=== PATIENT | male | born 1990 | race Caucasian/White ===

== ENCOUNTER 2016-05-24 | Outpatient (CLI) | payer MEDICAID | END 2016-05-24 21:30 | disposition EMS.NT | DX: R56.9 Unspecified convulsions (principal) ==

== ENCOUNTER 2016-05-25 | Outpatient (CLI) | payer MEDICAID | END 2016-05-25 15:04 | disposition EMS.NT | DX: R56.9 Unspecified convulsions (principal) ==

== ENCOUNTER 2016-07-14 06:41 | Outpatient (CLI) | payer MEDICAID | END 2016-07-14 06:42 | disposition home or self-care (01) | DX: R56.9 Unspecified convulsions (principal) ==

== ENCOUNTER 2016-07-14 10:04 | Outpatient (CLI) | payer MEDICAID | END 2016-07-14 10:05 | disposition critical access hospital (66) | DX: R56.9 Unspecified convulsions (principal) | CPT/HCPCS: A0425; A0427 ==

== ENCOUNTER 2016-07-14 10:05 | Emergency (ER) | payer MEDICAID ==
[2016-07-14] MEDS ORDERED: ONDANSETRON 4 MG/2 ML VIAL ONE (10:16)
[2016-07-14] MEDS ORDERED: LORazepam 2 MG/ML SYRINGE IVP STA ×2 (10:18→10:50)
[2016-07-14] MEDS ORDERED: ONDANSETRON 4 MG/2 ML VIAL IVP STA (10:18)
[2016-07-14] MEDS ORDERED: LORazepam 2 MG/ML SYRINGE ONE ×2 (10:23→10:43)
[2016-07-14] MEDS ORDERED: levETIRAcetam INJ 500 MG in SODIUM CHLORIDE 0.9% 100ML 100 ML IV STA (10:51)
== END 2016-07-14 13:41 | disposition home or self-care (01) ==
DX: G40.909 Epilepsy, unspecified, not intractable, without status epilepticus (principal)
CPT/HCPCS: 36415; 70450; 80053; 80306; 80320; 81001; 83690; 85025; 96365; 96375; 96376; 99284; J2060

== ENCOUNTER 2016-09-29 08:31 | Outpatient (CLI) | payer MEDICAID | END 2016-09-29 08:32 | disposition EMS.NT | LOC: EMS 08:31 | PROVIDERS: ATTEND Surgery | DX: Z03.89 Encounter for observation for other suspected diseases and conditions ruled out (principal) ==

== ENCOUNTER 2016-09-29 13:15 | Outpatient (CLI) | payer MEDICAID | END 2016-09-29 13:16 | disposition critical access hospital (66) | LOC: EMS 13:15 | PROVIDERS: ATTEND Surgery | DX: R46.89 Other symptoms and signs involving appearance and behavior (principal); R51 Headache | CPT/HCPCS: A0425; A0429 ==

== ENCOUNTER 2016-09-29 13:31 | Emergency (ER) | payer MEDICAID ==
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
[2016-09-29] MEDS ORDERED: ONDANSETRON ODT 4 MG TABLET TL STA (14:15)
[2016-09-29] MEDS ORDERED: diazePAM INJ 5 MG/ML SYRINGE IM STA (14:19)
[2016-09-29] MEDS ORDERED: LORazepam 2 MG/ML SYRINGE ONE (14:20)
[2016-09-29] MEDS ORDERED: diazePAM INJ 5 MG/ML SYRINGE ONE ×2 (14:26→16:00)
[2016-09-29] MEDS ORDERED: diazePAM INJ 5 MG/ML SYRINGE IVP STA ×2 (14:27→15:58)
--- NOTE | 2016-09-29 14:38 | XRAY Preliminary Report ---
Exam: XR Chest 1 View IMPRESSION: Normal single view chest. [facility] SITE ID: [id number]
[2016-09-29] MEDS ORDERED: levETIRAcetam INJ 500 MG in SODIUM CHLORIDE 0.9% 100ML 100 ML IV STA (14:42)
--- NOTE | 2016-09-29 14:49 | XRAY Report ---
EXAM: CHEST RADIOGRAPHY EXAM DATE: 09/29/2016 02:23 p.m. CLINICAL HISTORY: Cough. COMPARISON: 10/02/2015. TECHNIQUE: 1 view. FINDINGS: Lungs/Pleura: No focal opacities evident. No pleural effusion. No pneumothorax. Mediastinum: Within exam limitations, cardiomediastinal contour is normal. Other: None. IMPRESSION: Normal single-view chest. [facility] Referring Provider Line: [phone] SITE ID: [id number]
[2016-09-29 14:53] LABS: BASOPHILS # (AUTO) 0.1 10^3/uL (0.0-0.1); BASOPHILS % (AUTO) 0.4 %; HCT - HEMATOCRIT 45.6 % (42.0-52.0); HGB - HEMOGLOBIN 15.2 g/dL (14.0-18.0); LYMPHOCYTES # (AUTO) 1.8 10^3/uL (1.5-3.5); LYMPHOCYTES % (AUTO) 5.4 %; MEAN CORPUSCULAR HGB CONC 33.3 g/dL (32.0-36.0); MEAN CORPUSCULAR VOLUME 92.9 fL (80.0-94.0); MEAN PLATELET VOLUME 10.9 fL (7.4-11.4); MONOCYTES % (AUTO) 8.9 %; NEUTROPHILS # (AUTO) 28.9 10^3/uL (1.5-6.6); NEUTROPHILS % (AUTO) 85.3 %; RED BLOOD COUNT 4.91 10^6/uL (4.70-6.10); RED CELL DISTRIBUTION WIDTH 13.5 % (12.0-15.0); UNCORRECTED WHITE BLOOD COUNT 33.9 x10^3/uL; WHITE BLOOD COUNT 33.9 x10^3/uL (4.8-10.8)
[2016-09-29 15:04] LABS: ALBUMIN/GLOBULIN RATIO 1.8 (1.0-2.2); BUN - BLOOD UREA NITROGEN 16 mg/dL (6-20); CALCIUM 10.3 mg/dL (8.5-10.3); CHLORIDE 107 mmol/L (101-111); CREATININE 1.2 mg/dL (0.6-1.2); GFR - MDRD 73 (>89); GLUCOSE 153 mg/dL (70-100); LIPASE 19 U/L (22-51); SALICYLATE < 6.0 mg/dL; SODIUM 145 mmol/L (135-145); TOTAL PROTEIN 8.5 g/dL (6.7-8.2)
[2016-09-29 15:05] LABS: ACETAMINOPHEN < 10 ug/mL (10-30)
[2016-09-29 15:07] LABS: CARBON DIOXIDE - CO2 12 mmol/L (21-32)
[2016-09-29] MEDS ORDERED: POTASSIUM CHLOR 10 MEQ/100 ML 100 ML IV ONE ×2 (15:07→15:14)
[2016-09-29] MEDS ORDERED: ONDANSETRON ODT 4 MG TABLET ONE (15:50)
[2016-09-29] MEDS ORDERED: ONDANSETRON 4 MG/2 ML VIAL IVP STA (15:57)
[2016-09-29] MEDS ORDERED: ONDANSETRON 4 MG/2 ML VIAL ONE (16:01)
[2016-09-29 16:21] LABS: PLATELET ESTIMATE, MANUAL NORMAL (130-450,000) (NORMAL); PLATELET MORPHOLOGY NORMAL APPEARANCE (NORMAL)
[2016-09-29 16:22] LABS: WBC MORPHOLOGY (MULTIPLE) NORMAL APPEARANCE (NORMAL)
[2016-09-29 16:50] VITALS: BP 120/72
== END 2016-09-29 17:13 | disposition home or self-care (01) ==
LOC: EDUNIT# → ED 13:31
DX: G40.909 Epilepsy, unspecified, not intractable, without status epilepticus (principal); E87.6 Hypokalemia; D72.829 Elevated white blood cell count, unspecified; Z91.14 Patient's other noncompliance with medication regimen; R45.1 Restlessness and agitation; F91.8 Other conduct disorders
CPT/HCPCS: 36415; 71010; 80053; 80164; 80307; 80320; 80329; 83690; 84443; 85025; 96365; 96375; 96376; 99284; 99285; Q0162

== ENCOUNTER 2016-11-20 10:15 | Outpatient (CLI) | payer MEDICAID | END 2016-11-20 10:16 | disposition EMS.NT | LOC: EMS 10:15 | PROVIDERS: ATTEND Surgery | DX: R56.9 Unspecified convulsions (principal) ==

== ENCOUNTER 2016-11-21 08:05 | Outpatient (CLI) | payer MEDICAID | END 2016-11-21 08:06 | disposition EMS.NT | LOC: EMS 08:05 | PROVIDERS: ATTEND Surgery | DX: R56.9 Unspecified convulsions (principal) ==

== ENCOUNTER 2016-12-12 14:38 | Outpatient (CLI) | payer MEDICAID | END 2016-12-12 14:39 | disposition home or self-care (01) | LOC: EMS 14:38 | PROVIDERS: ATTEND Surgery | DX: J98.8 Other specified respiratory disorders (principal) | CPT/HCPCS: A0425; A0429 ==

== ENCOUNTER 2016-12-12 14:58 | Emergency (ER) | payer MEDICAID ==
[2016-12-12 15:18] VITALS: BP 131/82
--- NOTE | 2016-12-12 15:41 | ED Physician Documentation ---
History of Present Illness - Stated complaint Stated Complaint: SORE THROAT - Chief complaint Chief Complaint: Heent - History obtained from History obtained from: Patient - Additonal information Additional information: Patient is a 26-year-old man with a history of seizure disorders on marijuana. He also says he has had a history of pneumonia in the past. He is here with a couple day history of cough occasionally productive of mucus. He is also had mild nasal congestion. Apparently the patient went to a [facility] and said he had to be evaluated because he has been coughing quite a bit at night. This was a prerequisite in order to state the [facility]. He denies any fever or chills. There is no constipation or diarrhea. Review of systems: For pertinent positive and negatives in the review of systems please see the history of present illness, otherwise all other systems have been reviewed and are negative. Dragon disclaimer: Parts of this medical record were created using voice recognition technology. Because of the inherent limitations of this system, occasional same sounding word substitutions do occur and persist despite proofreading. Please read the document for context. Review of Systems Constitutional: denies: Fever, Chills Cardiac: denies: Chest pain / pressure Respiratory: reports: Cough. denies: Hemoptysis GI: denies: Abdominal Pain, Abdominal Swelling PD PAST MEDICAL HISTORY - Past Medical History Cardiovascular: None Respiratory: None Neuro: Seizure disorder Endocrine/Autoimmune: None GI: None : None HEENT: None Psych: None Musculoskeletal: None Derm: None - Past Surgical History Past Surgical History: No - Present Medications Home Medications: Ambulatory Orders Medication Instructions Recorded Confirmed Albuterol Sulf [Ventolin Hfa 1 - 2 puffs INH Q4HR PRN #1 inhaler 12/12/16 Inhaler] Amoxicillin 875 mg PO BID #14 tablet 12/12/16 - Allergies Allergies/Adverse Reactions: Allergies Allergy/AdvReac Type Severity Reaction Status Date / Time [facility] Allergy Hallucinati Verified 12/12/16 15:18 ons - Social History Does the pt smoke?: No Smoking Status: Never smoker Does the pt drink ETOH?: No Does the pt have substance abuse?: No - Immunizations Immunizations are current?: Yes - POLST Patient has POLST: No PD ED PE NORMAL - General General: Alert and oriented X 3, No acute distress, Well developed/nourished, Other (Well-appearing man in no apparent distress) - HEENT HEENT: Atraumatic - Neck Neck: Supple, no meningeal sign, No bony TTP - Cardiac Cardiac: RRR, No murmur, No gallop, No rub - Respiratory Respiratory: No respiratory distress, Clear bilaterally, Other (Occasional minimal wheeze heard) - Abdomen Abdomen: Normal bowel sounds, Non tender, Non distended - Derm Derm: Normal color, Warm and dry - Extremities Extremities: No deformity, No tenderness to palpate, Normal ROM s pain - Neuro Neuro: Alert and oriented X 3, No motor deficit, No sensory deficit Results - Vitals Vitals: Vital Signs - 24 hr 12/12/16 15:17 Temperature 36.9 C Heart Rate 87 Respiratory 14 Rate Blood Pressure 131/82 H O2 Saturation 100 Oxygen O2 Source Room air PD MEDICAL DECISION MAKING - ED course ED course: 18-year-old man who complains of cough and congestion and needs evaluation to rule out serious illness or get antibiotics return to your before he returns to the [facility]. On examination he is a thin strange but well-appearing man in no apparent distress he occasionally has a dry nonproductive cough. Mild end expiratory wheezing is heard bilaterally. I suspect more likely than not he has a bronchitis but since has been having cough and congestion and currently resident of [facility] would like to try and decrease his symptoms so that he gets taking care of. I will prescribe albuterol and a short course of amoxicillin although I suspect more likely than not bronchitis versus pneumonia clinically. Disposition: To home Clinical impression: 1. Acute bronchitis with bronchospasm-mild Departure - Departure Disposition: 01 Home, Self Care Clinical Impression: Acute bronchitis Qualifiers: Bronchitis organism: unspecified organism Qualified Code(s): J20.9 - Acute bronchitis, unspecified Condition: Good Instructions: ED Upper Resp Infec Abx Tx Follow-Up: Tommy [facility] [Provider Group] Prescriptions: Albuterol Sulf [Ventolin Hfa Inhaler] 1 - 2 puffs INH Q4HR PRN #1 inhaler PRN Reason: Shortness Of Air/Wheezing Amoxicillin 875 mg PO BID #14 tablet
== END 2016-12-12 15:30 | disposition home or self-care (01) ==
LOC: EDUNIT# → ED 14:58
DX: J20.9 Acute bronchitis, unspecified (principal); G40.909 Epilepsy, unspecified, not intractable, without status epilepticus; F12.90 Cannabis use, unspecified, uncomplicated
CPT/HCPCS: 99283

== ENCOUNTER 2016-12-23 15:42 | Outpatient (CLI) | payer MEDICAID ==
--- NOTE | 2016-12-24 09:27 | XRAY Report ---
TWO VIEW BILATERAL LOWER LEGS: 12/23/2016 CLINICAL INDICATION: Bilateral pain. FINDINGS: Frontal and lateral views of the bilateral lower legs demonstrate no evidence of fracture. No radiopaque foreign body is seen in the soft tissues. No periosteal reaction is appreciated on eit her side. IMPRESSION: NORMAL BILATERAL LOWER LEGS. JOB #: [id number] EXT JOB #:[id number]
== END 2016-12-23 15:43 | disposition home or self-care (01) ==
LOC: DI.N 15:42
PROVIDERS: ATTEND Physician Assistant
DX: M79.662 Pain in left lower leg (principal); M79.661 Pain in right lower leg

== ENCOUNTER 2017-01-04 06:31 | Outpatient (CLI) | payer MEDICAID | END 2017-01-04 06:32 | disposition critical access hospital (66) | LOC: EMS 06:31 | PROVIDERS: ATTEND Surgery | DX: R56.9 Unspecified convulsions (principal) | CPT/HCPCS: A0425; A0429 ==

== ENCOUNTER 2017-01-04 06:47 | Emergency (ER) | payer MEDICAID ==
[2017-01-04] MEDS ORDERED: DEXAMETHASONE 10 MG/ML VIAL IVP STA (07:21)
--- NOTE | 2017-01-04 07:24 | ED Physician Documentation ---
PD HPI SEIZURE - Stated complaint Stated Complaint: SZ - Chief complaint Chief Complaint: Neuro - History obtained from History obtained from: Patient - History of Present Illness Timing - onset: Today Witnessed: Witnessed Number of seizures: Multiple (X2) Description of seizure activity: Abscence, Postictal Injury during seizure: None Associated symptoms: Other (cough and congestion) History of seizures: Known seizure disorder Contributing factors: Off meds Similar symptoms before: Diagnosis (seizure) Recently seen: Emergency Dept (last month with bronchitis.) - Additional information Additional information: 26-year-old noncompliant male with a history of seizure disorder was at the shoulder today when he had to seizures which are described as an absence of being and jerking. He has previously had postictal period with aggressive behavior and today this was not witnessed. He has had cough and congestion and with previous seizure he has had pneumonia and electrolyte disturbances. Review of Systems Constitutional: denies: Fever, Chills Eyes: denies: Decreased vision Ears: denies: Ear pain Nose: reports: Rhinorrhea / runny nose, Congestion, Sinus pressure / pain Throat: denies: Sore throat Cardiac: denies: Chest pain / pressure, Palpitations Respiratory: reports: Cough. denies: Dyspnea GI: denies: Abdominal Pain, Nausea, Vomiting, Constipation, Diarrhea : denies: Dysuria, Frequency Skin: denies: Rash, Lesions Musculoskeletal: denies: Neck pain, Back pain Neurologic: reports: Seizure. denies: Generalized weakness, Focal weakness, Numbness PD PAST MEDICAL HISTORY - Past Medical History Cardiovascular: None Respiratory: None Neuro: Seizure disorder Endocrine/Autoimmune: None GI: None : None HEENT: None Psych: None Musculoskeletal: None Derm: None - Past Surgical History Past Surgical History: No - Present Medications Home Medications: Ambulatory Orders Medication Instructions Recorded Confirmed Azithromycin [Zithromax] 250 mg PO DAILY #6 tablet 01/04/17 - Allergies Allergies/Adverse Reactions: Allergies Allergy/AdvReac Type Severity Reaction Status Date / Time levetiracetam [From Keppra] Allergy Hallucinati Verified 01/04/17 06:58 ons - Social History Does the pt smoke?: No Smoking Status: Never smoker Does the pt drink ETOH?: No Does the pt have substance abuse?: No - Immunizations Immunizations are current?: Yes - POLST Patient has POLST: No PD ED PE NORMAL - Vitals Vital signs reviewed: Yes (hypotensive with wide pulse pressure. ) - General General: No acute distress, Well developed/nourished - HEENT HEENT: Atraumatic, PERRL, EOMI, Other (mild inflamation of the right TM and more inflamation with distorted landmarks on the left. ) - Neck Neck: Supple, no meningeal sign, No bony TTP - Cardiac Cardiac: RRR, No murmur - Respiratory Respiratory: No respiratory distress, Clear bilaterally - Abdomen Abdomen: Soft, Non tender - Back Back: No CVA TTP, No spinal TTP - Derm Derm: Normal color, Warm and dry, No rash - Extremities Extremities: No deformity, No edema - Neuro Neuro: Alert and oriented X 3, electric range servicer 2-12 intact, No motor deficit, No sensory deficit, Normal speech - Psych Psych: Normal mood, Normal affect Results - Vitals Vitals: Vital Signs - 24 hr 01/04/17 01/04/17 06:52 07:32 Temperature 36.2 C L Heart Rate 73 74 Respiratory 16 16 Rate Blood Pressure 100/54 L 110/64 O2 Saturation 99 99 Oxygen O2 Source Room air - Labs Labs: Laboratory Tests 01/04/17 01/04/17 07:30 07:30 WBC 12.3 H RBC 4.16 L Hgb 12.8 L Hct 37.4 L MCV 89.9 MCH 30.7 MCHC 34.2 RDW 13.8 Plt Count 225 MPV 8.8 Neut # 9.3 H Lymph # 1.9 [place] # 1.0 Eos # 0.1 Baso # 0.1 Absolute Nucleated RBC 0.01 Nucleated RBCs 0.1 Sodium 141 Potassium 3.1 L Chloride 101 Carbon Dioxide 33 H Anion Gap 7.0 BUN 13 Creatinine 0.7 Estimated GFR (MDRD) 134 Glucose 97 Calcium 8.8 Total Bilirubin 0.4 AST 19 ALT 11 Alkaline Phosphatase 55 Total Protein 5.9 L Albumin 3.4 Globulin 2.5 Albumin/Globulin Ratio 1.4 Lipase 15 L PD MEDICAL DECISION MAKING - ED course Complexity details: reviewed old records, reviewed results, re-evaluated patient , considered differential, d/w patient ED course: 26-year-old male with a history of seizure disorder noncompliant on medications has had another seizure today associated with otitis media. Here in the emergency department he is administered dexamethasone intravenously and we will prescribe azithromycin. He has low K+ and he is administered potassium bicarbonate. He continues to refuse antiepileptic. Departure - Departure Disposition: 01 Home, Self Care Clinical Impression: Seizure, Hypokalemia Otitis media Qualifiers: Otitis media type: suppurative Chronicity: acute Laterality: bilateral Recurrence: not specified as recurrent Spontaneous tympanic membrane rupture: without spontaneous rupture Qualified Code(s): H66.003 - Acute suppurative otitis media without spontaneous rupture of ear drum, bilateral Instructions: ED Potassium Deficiency, ED Otitis Media Acute Adult, ED Seizure Recurrent Follow-Up: Alan Atwood PA-C [Primary Care Provider] - Prescriptions: Azithromycin [Zithromax] 250 mg PO DAILY #6 tablet
[2017-01-04 07:36] LABS: BASOPHILS # (AUTO) 0.1 10^3/uL (0.0-0.1); BASOPHILS % (AUTO) 0.4 %; EOSINOPHILS # (AUTO) 0.1 10^3/uL (0.0-0.7); EOSINOPHILS % (AUTO) 0.8 %; HCT - HEMATOCRIT 37.4 % (42.0-52.0); HGB - HEMOGLOBIN 12.8 g/dL (14.0-18.0); LYMPHOCYTES # (AUTO) 1.9 10^3/uL (1.5-3.5); LYMPHOCYTES % (AUTO) 15.4 %; MEAN CORPUSCULAR HEMOGLOBIN 30.7 pg (27.0-31.0); MEAN CORPUSCULAR HGB CONC 34.2 g/dL (32.0-36.0); MEAN CORPUSCULAR VOLUME 89.9 fL (80.0-94.0); MEAN PLATELET VOLUME 8.8 fL (7.4-11.4); MONOCYTES % (AUTO) 7.8 %; NEUTROPHILS # (AUTO) 9.3 10^3/uL (1.5-6.6); NEUTROPHILS % (AUTO) 75.6 %; NUCLEATED RED BLOOD CELLS AUTO 0.1 /100WBC; RED BLOOD COUNT 4.16 10^6/uL (4.70-6.10); RED CELL DISTRIBUTION WIDTH 13.8 % (12.0-15.0); UNCORRECTED WHITE BLOOD COUNT 12.3 x10^3/uL; WHITE BLOOD COUNT 12.3 x10^3/uL (4.8-10.8)
[2017-01-04] MEDS ORDERED: DEXAMETHASONE 10 MG/ML VIAL ONE (07:38)
[2017-01-04] MEDS ORDERED: SODIUM CHLORIDE FLUSH 0.9% 10 ML SYRINGE IVP ONE (07:40)
[2017-01-04 07:47] LABS: ALBUMIN/GLOBULIN RATIO 1.4 (1.0-2.2); BILIRUBIN,TOTAL 0.4 mg/dL (0.2-1.0); CALCIUM 8.8 mg/dL (8.5-10.3); CREATININE 0.7 mg/dL (0.6-1.2); POTASSIUM 3.1 mmol/L (3.5-5.0); TOTAL PROTEIN 5.9 g/dL (6.7-8.2)
[2017-01-04] MEDS ORDERED: POTASSIUM BICARB 25 MEQ TABLET PO STA (07:49)
[2017-01-04] MEDS ORDERED: POTASSIUM BICARB 25 MEQ TABLET PO ONE (08:00)
[2017-01-04 08:43] VITALS: BP 105/60
== END 2017-01-04 08:30 | disposition home or self-care (01) ==
LOC: EDUNIT# → ED 06:47
DX: G40.909 Epilepsy, unspecified, not intractable, without status epilepticus (principal); E87.6 Hypokalemia; H66.003 Acute suppurative otitis media without spontaneous rupture of ear drum, bilateral; Z91.14 Patient's other noncompliance with medication regimen
CPT/HCPCS: 36415; 80053; 83690; 85025; 96374; 99283; 99284; A9270

== ENCOUNTER 2017-01-04 12:30 | Outpatient (CLI) | payer MEDICAID | END 2017-01-04 12:31 | disposition EMS.NT | LOC: EMS 12:30 | PROVIDERS: ATTEND Surgery | DX: R56.9 Unspecified convulsions (principal) ==

== ENCOUNTER 2017-01-05 10:14 | Outpatient (CLI) | payer MEDICAID | END 2017-01-05 10:15 | disposition EMS.NT | LOC: EMS 10:14 | PROVIDERS: ATTEND Surgery | DX: Z03.89 Encounter for observation for other suspected diseases and conditions ruled out (principal) ==

== ENCOUNTER 2017-08-17 09:44 | Outpatient (CLI) | payer MEDICAID | END 2017-08-17 09:45 | disposition EMS.NT | LOC: EMS 09:44 | PROVIDERS: ATTEND Surgery | DX: Z03.89 Encounter for observation for other suspected diseases and conditions ruled out (principal); X08.8XXA Exposure to other specified smoke, fire and flames, initial encounter; Y92.59 Other trade areas as the place of occurrence of the external cause ==

== ENCOUNTER 2018-08-07 12:24 | Emergency (ER) | payer MEDICAID ==
[2018-08-07 12:32] VITALS: BP 129/83
== END 2018-08-07 12:36 | disposition left against medical advice (07) ==
LOC: ED 12:24
DX: H57.12 Ocular pain, left eye (principal); H57.89 Other specified disorders of eye and adnexa; H53.8 Other visual disturbances; Z53.21 Procedure and treatment not carried out due to patient leaving prior to being seen by health care provider

== ENCOUNTER 2018-11-01 10:44 | Outpatient (CLI) | payer MEDICAID | END 2018-11-01 10:45 | disposition EMS.NT | LOC: EMS 10:44 | PROVIDERS: ATTEND Surgery | DX: R56.9 Unspecified convulsions (principal) ==

== ENCOUNTER 2018-12-09 11:09 | Outpatient (CLI) | payer MEDICAID | END 2018-12-09 11:10 | disposition E | LOC: EMS 11:09 | PROVIDERS: ATTEND Surgery | DX: S01.90XA Unspecified open wound of unspecified part of head, initial encounter; W32.0XXA Accidental handgun discharge, initial encounter; Y92.89 Other specified places as the place of occurrence of the external cause ==